=== PATIENT | female | born 1955 | race Caucasian/White ===

== ENCOUNTER 2016-09-05 17:45 | Emergency (ER) | payer BC, OTHER, SELFPAY ==
[~2016-09-05] VITALS: Ht 154.9 cm; Wt 50.0 kg
[2016-09-05] MEDS ORDERED: SODIUM CHLORIDE FLUSH 10ML SYR IVF ONE ×2 (18:00→18:30)
[2016-09-05] MEDS ORDERED: ALBUTEROL/IPRATROPIUM 2.5MG/0.5MG, 3 ML ONE ×2 (18:05→18:54)
[2016-09-05] MEDS ORDERED: methylPREDNISolone SOD SUCC 125 MG/2 ML ONE (18:18)
[2016-09-05] MEDS: ALBUTEROL/IPRATROPIUM 2.5MG/0.5MG, 3 ML NPPB SCH ×2 (18:25→19:25)
[2016-09-05 18:27] LABS: BLOOD UREA NITROGEN 16 mg/dL (7-18)
[2016-09-05 18:30] LABS: IS PT STATUS REG ER OR PRE ER? YES
[2016-09-05] MEDS ORDERED: methylPREDNISolone SOD SUCC 125 MG/2 ML IVP ONE (18:30)
[2016-09-05] MEDS ORDERED: SODIUM CHLORIDE 0.9% 1,000ML IVBOLUS ONE (18:30)
[2016-09-05] MEDS ORDERED: ALBUTEROL/IPRATROPIUM 2.5MG/0.5MG, 3 ML NPPB SCH (18:30)
[2016-09-05 18:55] VITALS: BP 120/85
[2016-09-05] MEDS ORDERED: OMEP20TA62 PO (18:56)
[2016-09-05] MEDS ORDERED: ASPI-496 PO (18:57)
== END 2016-09-05 19:55 | disposition home or self-care (01) ==
LOC: ED 19:44
DX: J44.1 Chronic obstructive pulmonary disease with (acute) exacerbation (principal)
CPT/HCPCS: 36415; 71010; 80048; 82040; 83605; 83880; 84145; 84484; 85025; 93005; 94640; 96374; 99291; J2930; J7030; J7620

== ENCOUNTER → 2017-01-02 | Outpatient (CLI) | payer BC ==
[~2017-01-02] MED LIST: ASPI-496 PO; OMEP20TA62 PO
== END | disposition home or self-care (01) ==
LOC: CFH 14:30
PROVIDERS: ATTEND Internal Medicine
DX: Z12.31 Encounter for screening mammogram for malignant neoplasm of breast (principal)
CPT/HCPCS: G0202

== ENCOUNTER 2018-08-08 14:55 | Outpatient (CLI) | payer OTHER ==
[~2018-08-08 14:55] MED LIST changes: +ALBU0.63 NEB; +AZIT250T89 PO; +BECL8.7A6 INH; +PRED10TA PO; +TIOT18CA INH
== END 2018-08-08 23:59 | disposition home or self-care (01) ==
LOC: CFH 14:55
PROVIDERS: ATTEND Radiology Diagnostic Radiology
DX: Z12.31 Encounter for screening mammogram for malignant neoplasm of breast (principal)
CPT/HCPCS: 77067

== ENCOUNTER → 2020-10-20 | Outpatient (CLI) | payer OTHER | END | disposition home or self-care (01) | LOC: CFH 12:27 | PROVIDERS: ATTEND Internal Medicine | DX: Z12.31 Encounter for screening mammogram for malignant neoplasm of breast (principal) | CPT/HCPCS: 77067 ==